=== PATIENT | male | born 1990 | race Two or more races ===

== ENCOUNTER 2024-06-03 15:01 | Inpatient (IN) | payer MEDICARE, MEDICAID ==
[~2024-06-03] VITALS: Ht 170.2 cm; Wt 65.0 kg
[~2024-06-03 15:01] MED LIST: HYDR-1421; NAPR-476
--- NOTE | 2024-06-03 15:18 | ED.PDOC ---
Altered Mental Status HPI Comments HPI: Poor Historian. 34-year-old male with a history of seizures on Keppra 4000 mg daily brought in by ambulance from home for seizure episode that was witnessed lasted approximately 15 minutes. Patient was laying flat when EMS arrived. They suspect that he aspirated. They repositioned him and he received a total of five Versed prior to arrival. Patient arrives here postictal. Seizure stopped after the Versed was given in route. Patient was slightly hypoxic in route on a non-rebreather but upon arrival on our monitor his pulse ox is 98%. Patient responds to painful stimuli and sternal rub. Also patient is on Xarelto for history of recent blood clot unknown where. Initial Vital Signs: Temp : BP: 100/65 HR:102 RR: 28 SpO2: 88% Past Medcial History: Past Surgical History: Past Surgical History: UNOBTAINABLE Social History: Denies smoking, ETOH, or drug use. Medications: KEPRA 4000MG, XARELTO Allergies: NKDA REVIEW OF SYSTEMS: Review of systems limited given the patient's altered level of consciousness however per EMS CONSTITUTIONAL: Denies acute: fever, diaphoresis, chills, generalized weakness. HEAD: Denies acute: headache, photophobia Eyes: Denies acute: Double vision, vision loss, eye pain, eye discharge. EARS: Denies acute: tinnitus, hearing loss, ear discharge, ear pain, THROAT: Denies acute: sore throat, swelling, difficulty swallowing , pain with swallowing, change in voice. NECK: Denies acute: neck pain, neck swelling, stiff neck. HEART: Denies acute : chest pain, palpitations, LUNGS: Denies acute: SOB, wheezing, cough, hemoptysis ABDOMEN: Denies acute: abdominal pain, Nausea, Vomiting, diarrhea, melena , hematemesis, hematochezia SKIN: Denies acute: rash, redness, lesions, itchiness. EXTREMITIES: Denies acute: calf pain, numbness, tingling, weakness, denies pain in extremity. Denies acute: Low back pain. Neuro: Denies acute: focal neurological deficit, motor or sensory focal neurological deficit, tremors, confusion, loss of bowel or bladder function, cauda equina like symptoms. : Denies acute: dysuria, hematuria, flank pain, increase in urinary frequency. PSYCH: Denies acute: hallucination, suicidal ideation, homicidal ideation. PHYSICAL EXAM: General: no acute distress, patient responds to painful stimuli by moving all his extremities. Head: normocephalic, atraumatic. Neck: supple, trachea is midline, no swelling. Throat: Patient has a gag reflex when I insert the tongue depressor. Eyes:, no erythema, no purulent discharge, no proptosis, no icterus. Heart: regular rate, regular rhythm, no significant murmur appreciated. Lungs: no apparent respiratory distress, No wheezing, no rhonchi, no crackles. No stridors Clear to auscultation bilaterally. Abdomen: non tender to palpation, non distended, soft, no guarding, no rebound, + bowel sounds. Neuro: Postictal, Versed was given recently Skin: no petechia, no purpura, no cyanosis, non-pale, not jaundice. Lower extremities: --no - Pitting edema no deformity, no focal swelling, no calf TTP. Face: no apparent facial droop. Pupils are reactive to light symmetrically bilaterally. Time Seen by MD: 15:03 Primary Care Provider: DENIES Allergies: Coded Allergies: NO KNOWN ALLERGIES (Unverified , 01/16/10) Home Meds Reported Medications Levetiracetam (Keppra) 500 Mg Tab, 2000 MG PO BID, MG 06/03/24 Rivaroxaban (XARELTO) 20 Mg Tab, 1 TAB PO DAILY, #30 TAB 11 Refills 06/03/24 Swozxtsimwc-Uiqcpmyidbvfi-Sdbm (Biktarvy 50-200-25 mg) 1 Tab Tab, 1 TAB PO DAILY, TAB 06/03/24 Naproxen (Naproxen Dr) 500 Mg Tab 01/16/10 Hydrocodone-Acetaminophen (Vicodin) 1 Tab Tab 01/16/10 Information Source: Emergency Med Personnel Past Medical History PAST MEDICAL HISTORY: Kidney Stones Surgical History: Denies all surgeries Family History Family History: Reviewed,noncontributory to illness, No family hx of DM Social History Smoker: Cigarettes Alcohol: Denies ETOH Use Drugs: Denies Drug Use Lives In: Home X-Ray, Labs, Meds, VS Vital Signs Date Time Temp Pulse Resp B/P (MAP) Pulse Ox O2 Delivery O2 Flow Rate FiO2 06/03/24 20:01 97 06/03/24 18:30 87 20 109/50 (69) 97 06/03/24 17:30 99 17 132/84 (100) 97 06/03/24 16:30 84 23 104/65 (78) 99 06/03/24 16:00 81 06/03/24 15:37 98.0 93 22 103/63 (76) 100 98.0 06/03/24 15:35 93 22 100 Non-Rebreather 10 N/A 06/03/24 15:30 99.0 102 26 100/65 (77) 88 Lab Test 06/03/24 19:51 06/03/24 17:51 06/03/24 16:45 06/03/24 15:15 Range/Units Troponin I High Sensitivity 10 10 6 </=54 ng/L Lactic Acid Level 0.9 3.0 *H 0.4-2.0 mmol/L Urine Color Light-yellow Yellow Urine Clarity Clear Clear Urine pH 6.5 5.0-9.0 Urine Specific [place] 1.017 1.001-1.035 Urine Protein Trace H Negative Urine Ketones 2+ H Negative Urine Blood Negative Negative /uL Urine Nitrite Negative Negative Urine Bilirubin Negative Negative Urine Urobilinogen Normal Negative mg/dL Urine Leukocyte Esterase Negative Negative /uL Urine RBC 4 0 - 3 /hpf Urine WBC <1 0 - 3 /hpf Urine Squamous Epithelial Cells Few <5 /hpf Urine Bacteria None seen None Seen /hpf Urine Hyaline Casts Few 0 - 2 /lpf Urine Mucus Few None Seen Urine Sperm Present None Seen /hpf Urine Glucose Normal Normal mg/dL Urine Opiates Screen Neg NEGATIVE Urine Fentanyl Screen Neg NEGATIVE Urine Barbiturates Screen Neg NEGATIVE Urine Phencyclidine Screen Neg NEGATIVE Urine Amphetamines Screen Pos NEGATIVE Urine Benzodiazepines Screen Pos NEGATIVE Urine Cocaine Screen Neg NEGATIVE Urine Cannabinoids Screen Pos NEGATIVE White Blood Count 7.9 4.4-10.8 10^3/uL Red Blood Count 5.18 4.5-5.90 10^6/uL Hemoglobin 15.1 13.5-17.5 g/dL Hematocrit 45.9 41.0-53.0 % Mean Corpuscular Volume 88.7 80.0-100.0 fL Mean Corpuscular Hemoglobin 29.1 28.0-32.0 pg Mean Corpuscular Hemoglobin Concent 32.9 32.0-36.0 g/dL Red Cell Distribution Width 17.7 H 11.8-14.3 % Platelet Count 198 140-450 10^3/uL Mean Platelet Volume 7.7 6.9-10.8 fL Neutrophils (%) (Auto) 85.4 H 37.0-80.0 % Lymphocytes (%) (Auto) 9.6 L 10.0-50.0 % Monocytes (%) (Auto) 4.4 0.0-12.0 % Eosinophils (%) (Auto) 0.3 0.0-7.0 % Basophils (%) (Auto) 0.3 0.0-2.0 % Neutrophils # (Auto) 6.7 1.6-8.6 10 ^3/uL Lymphocytes # (Auto) 0.8 0.4-5.4 10 ^3/uL Monocytes # (Auto) 0.3 0-1.3 10 ^3/uL Eosinophils # (Auto) 0 0-0.8 10 ^3/uL Basophils # (Auto) 0 0-0.2 10 ^3/uL Nucleated Red Blood Cells 0.1 % Sodium Level 138 136-145 mmol/L Potassium Level 4.2 3.5-5.1 mmol/L Chloride Level 104 98-107 mmol/L Carbon Dioxide Level 24 20-31 mmol/L Anion Gap 10 5-15 Blood Urea Nitrogen 13 9-23 mg/dL Creatinine 0.79 0.700-1.30 mg/dL Glomerular Filtration Rate Calc 120 >90 mL/min BUN/Creatinine Ratio 16.5 10.0-20.0 Serum Glucose 92 74-106 mg/dL Calcium Level 9.9 8.7-10.4 mg/dL Magnesium Level 2.2 1.6-2.6 mg/dL Total Bilirubin 0.8 0.2-1.0 mg/dL Aspartate Amino Transferase (AST) 28 13-40 U/L Alanine Aminotransferase (ALT) 17 7-40 U/L Alkaline Phosphatase 62 46-116 U/L Ammonia 32 11-32 umol/L Creatine Kinase 555 H 46-171 U/L Total Protein 7.0 5.7-8.2 g/dL Albumin 4.6 3.2-4.8 g/dL Salicylates Level < 3.0 -30 mg/dL Acetaminophen Level < 2.0 L 10.0-20.0 UG/ML Plasma/Serum Blood Alcohol 4.4 <10 mg/dL Current Medications Medications (Trade) Dose Ordered Sig/Og Route Start Time Stop Time Status Last Admin Sodium Chloride 1,000 ml @ 1,000 mls/hr Q1H ONCE IV 06/03/24 15:15 06/03/24 16:14 DC 06/03/24 15:22 Magnesium Sulfate/ Dextrose 100 ml @ 100 mls/hr ONCE ONCE IV 06/03/24 15:15 06/03/24 16:14 DC 06/03/24 15:22 Piperacillin Sod/ Tazobactam Sod 100 ml @ 100 mls/hr ONCE ONCE IV 06/03/24 15:15 06/03/24 16:14 DC 06/03/24 18:19 Naloxone HCl (Narcan) 4 mg ONCE ONCE IV 06/03/24 15:30 06/03/24 15:42 DC 06/03/24 15:59 Lorazepam (Ativan Inj) 1 mg ONCE ONCE IV 06/03/24 16:30 06/03/24 16:31 DC 06/03/24 16:20 Sodium Chloride 1,000 ml @ 1,000 mls/hr Q1H ONCE IV 06/03/24 16:30 06/03/24 17:29 DC 06/03/24 18:06 Levetiracetam 100 ml @ 400 mls/hr ONCE ONCE IV 06/03/24 16:30 06/03/24 16:44 DC 06/03/24 17:10 Ondansetron HCl (Zofran) 8 mg ONCE ONCE IV 06/03/24 17:30 06/03/24 17:31 DC 06/03/24 18:06 Sodium Chloride 1,000 ml @ 100 mls/hr Q10H IV 06/03/24 20:45 06/03/24 22:14 Time of 1ST Reevaluation: 16:49 (I was just updated that the patient family came and stated that the patient was initially diagnosed with bacterial meningitis 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 He completed the course of antibiotics. He was admitted last month. Patient has history of HIV and they state compliance with the medications however the family does not want to live with the patient. They stated that the patient's baseline is somewhat confused because of history of traumatic brain injury. Patient is now moving all four extremities answering questions when asked him what is his name. Patient is able to voice his concern and wants to be unrestrained. He is still altered and confused. No family members available at bedside at this t avis. He is in soft restraints to prevent harm to self. I am still waiting for CT scan of the brain. Patient is not holding still and keeps moving. We gave him 2 mg of Ativan. We were also told that the patient has problems with his short-term memory.) Reevaluation 1ST: Improved Patient Education/Counseling: Other Family Education/Counseling: Other Comments Patient presented with the above HPI.------ workup was initiated. patient was found with the above mentioned diagnosis. the following medications were ordered: the following tests were ordered: LABS, UA, CXR, EKG Patient ED course and VS have been stabilized. Patient has been reassessed in the ED and remained in a stable condition. Pertinent incidental findings were discussed with the patient and/or family. Patient/family voices understanding and is agreeable with plan. Patient has been observed in the ED adequate length of time to insure improvement/stability. Escalation of care considered: Consideration of escalation to observation or admission Patient was ADMITTED to the medicine team for further evaluation and treatment of their presentation. Patient was DISCHARGED home in a stable condition. All the reports of any imaging studies that were ordered by myself were reviewed by myself. Departure 1 Departure Time of Disposition: 16:18 Impression: Primary Impression: Altered level of consciousness Additional Impressions: Seizure Elevated CK Polysubstance abuse Disposition: ADMITTED INPATIENT Admit to: Tele Condition: Guarded Discharged With: Self I personally scribed for JAYDE PRITCHETT DO ([email or web address]) on 06/03/24 at 16:24. Electronically submitted by Kiley Mathew ([email or web address]). I personally scribed for JAYDE PRITCHETT DO ([email or web address]) on 06/03/24 at 22:38. Laura ctronically submitted by Kiley Mathew ([email or web address]). JAYDE PRITCHETT DO Jun 03, 2024 15:18
[2024-06-03] MEDS: MAGNESIUM SULFATE 1GM/100ML 100 ML IV ONE (15:22)
[2024-06-03] MEDS: SODIUM CHLORIDE 0.9% 1,000 ML IV ONE ×2 (15:22→18:06)
[2024-06-03 15:33] LABS: Basophils # (auto) 0 10 ^3/uL (0-0.2); Basophils % (auto) 0.3 % (0.0-2.0); Eosinophils # (auto) 0 10 ^3/uL (0-0.8); Eosinophils % (auto) 0.3 % (0.0-7.0); Hematocrit 45.9 % (41.0-53.0); Hemoglobin 15.1 g/dL (13.5-17.5); Lymphocytes # (auto) 0.8 10 ^3/uL (0.4-5.4); Lymphocytes % (auto) 9.6 % (10.0-50.0); Mean Corpuscular Hemoglobin 29.1 pg (28.0-32.0); Mean Corpuscular Hgb Conc. 32.9 g/dL (32.0-36.0); Mean Corpuscular Volume 88.7 fL (80.0-100.0); Monocytes # (auto) 0.3 10 ^3/uL (0-1.3); Monocytes % (auto) 4.4 % (0.0-12.0); Neutrophils # (auto) 6.7 10 ^3/uL (1.6-8.6); Neutrophils % (auto) 85.4 % (37.0-80.0); Nucleated Red Blood Cells % 0.1 %; Platelet Count (auto) 198 10^3/uL (140-450); Red Blood Cells 5.18 10^6/uL (4.5-5.90); Red Cell Distribution Width 17.7 % (11.8-14.3); White Blood Cell 7.9 10^3/uL (4.4-10.8)
[2024-06-03 15:35] VITALS: PULSE 93; RESP 22; O2SAT 100
[2024-06-03 15:46] LABS: Acetaminophen < 2.0 UG/ML (10.0-20.0); Alanine Aminotransferase 17 U/L (7-40); Albumin 4.6 g/dL (3.2-4.8); Alkaline Phosphatase 62 U/L (46-116); Anion Gap 10 (5-15); Aspartate Aminotransferase 28 U/L (13-40); BUN/Creatinine Ratio 16.5 (10.0-20.0); Blood Alcohol 4.4 mg/dL (<10); Blood Urea Nitrogen 13 mg/dL (9-23); Calcium 9.9 mg/dL (8.7-10.4); Carbon Dioxide 24 mmol/L (20-31); Chloride 104 mmol/L (98-107); Glucose 92 mg/dL (74-106); Magnesium 2.2 mg/dL (1.6-2.6); Potassium 4.2 mmol/L (3.5-5.1); Salicylate < 3.0 mg/dL (-30); Sodium 138 mmol/L (136-145)
[2024-06-03 15:47] LABS: Bilirubin, Total 0.8 mg/dL (0.2-1.0)
[2024-06-03 15:55] LABS: Creatine Kinase IFCC 555 U/L (46-171)
[2024-06-03] MEDS: NALOXONE HCL 1MG/ML 2ML SYRINGE IV ONE (15:59)
[2024-06-03] MEDS: LORazepam 2MG/ML-1ML VIAL IV ONE (16:20)
[2024-06-03] MEDS ORDERED: LORazepam 2MG/ML-1ML VIAL ONE (16:21)
[2024-06-03] MEDS: levETIRAcetam 1000 mg/100ml 100 ML IV ONE (17:10)
[2024-06-03 17:27] LABS: Urine Bacteria None Seen /hpf (None Seen)
--- NOTE | 2024-06-03 17:49 | DVH ---
CHEST RADIOGRAPH Indication: ALOC, SEIZURE Technique: Single frontal view of the chest was obtained Comparison: None FINDINGS: Lines and Tubes: None Lungs: No focal consolidation. Pleura: No effusion. No pneumothorax. Cardiomediastinal contours: Unremarkable Bones: No acute osseous abnormality. IMPRESSION: 1. No radiographic evidence of acute cardiopulmonary disease. HS:Y
[2024-06-03 17:59] LABS: Urine Blood Negative /uL (Negative); Urine Clarity Clear (Clear); Urine Color Light-Yellow (Yellow); Urine Hyaline Cast FEW /lpf (0 - 2); Urine Mucus FEW (None Seen); Urine Protein, UAD TRACE (Negative); Urine Specific Gravity 1.017 (1.001-1.035); Urine Sperm PRESENT /hpf (None Seen); Urine Squamous Epithelial Cell FEW /hpf (<5); Urine Urobilinogen Normal (Negative); Urine WBC <1 /hpf (0 - 3); Urine pH 6.5 (5.0-9.0)
[2024-06-03 18:00] LABS: Amphetamine Screen, Urine Pos (NEGATIVE); Barbiturate Scree,Urine Neg (NEGATIVE); Benzodiazephine Screen, Urine Pos (NEGATIVE); Cannabinoid Screen, Urine Pos (NEGATIVE); Cocaine Screen, Urine Neg (NEGATIVE); Opiate Scree,Urine Neg (NEGATIVE); Phencyclidine Screen, Urine Neg (NEGATIVE)
[2024-06-03] MEDS: ONDANSETRON HCL 4 MG/2 ML VIAL IV ONE (18:06)
[2024-06-03] MEDS: PIPERACILLIN-TAZOB 3.375GM 100 ML IV ONE (18:19)
[2024-06-03] MEDS ORDERED: RIVA20TA PO (19:04)
[2024-06-03] MEDS ORDERED: LEVE500T40 PO (19:04)
[2024-06-03] MEDS ORDERED: BICT1TAB PO (19:04)
[2024-06-03] MEDS ORDERED: ONDANSETRON HCL 4 MG/2 ML VIAL IV PRN (20:15)
[2024-06-03] MEDS ORDERED: DOCUSATE SOD 100 MG CAP PO PRN (20:15)
[2024-06-03] MEDS ORDERED: SODIUM CHLORIDE 0.9% 1,000 ML IV SCH (20:15)
[2024-06-03] MEDS ORDERED: HYDROcodone-ACET 5/325MG TAB PO PRN (20:15)
[2024-06-03] MEDS ORDERED: LORazepam 2MG/ML-1ML VIAL IV PRN (20:15)
--- NOTE | 2024-06-03 20:57 | DVHHP2 ---
History of Present Illness Reason for Visit: Seizure disorder History of Present Illness Patient is a 34-year-old male with past medical history of seizure and right hand DVT who presented to [facility] ED for evaluation of seizures activity. As reported by sister patient had witnessed seizure episode that lasted approximately 15 minutes. Seizure stopped after the Versed was given in route. Patient was slightly hypoxic in route on a non-rebreather but upon arrival on our monitor his pulse ox is 98%. The patient was seen and evaluated in the ED, laboratory data shows WBC 7.9, platelets 198, sodium 138, potassium 4.2, BUN 19, creatinine 0.79, GFR 120, glucose 92, CK 555, lactic acid 3.0 trending down to 0.9, ammonia 32, troponin 10, alcohol 4.4, blood pressure 109/50, heart rate 84, temperature 98.0 F, O2 saturation 97% room air. Head CT showed no acute intracranial abnormality. Please see medication orders section in the computer. On my assessment, patient's sister at bedside, denied chest pain, no headache, no dizziness, no diaphoresis, no shortness of breath, no naus ea, no vomiting, no fever, no chills. Patient was admitted further evaluation and medical management. Past Medical History Seizure, Right hand DVT, TBI Past Surgical History Multiple left-sided fractures surgery Family History Reviewed, noncontributory to the management of this case. Past Social History The patient lives at home, denies smoking, alcohol or illicit drugs abuse. Review of Systems Constitutional: Yes: Weakness; No: Fever, Chills, Sweats, Malaise, Other Eyes: No: Pain, Vision change, Conjunctivae inflammation, Eyelid inflammation, Other, Redness ENT: No: Ear pain, Ear discharge, Nose pain, Nose discharge, Nose congestion, Mouth pain, Mouth swelling, Throat pain, Throat swelling, Other Respiratory: No: Cough, Dry, Shortness of breath, SOB with excertion, Wheezing, Hemoptysis, Pleuritic Pain, Sputum, Wheezing, Other Cardiovascular: No: Chest Pain, Palpitations, Orthopnea, Paroxysmal Noc. Dyspnea, Edema, Lt Headedness, Other Gastrointestinal: No: Nausea, Vomiting, Abdominal Pain, Diarrhea, Constipation, Melena, Hematochezia, Other Genitourinary: No Dysuria, No Frequency, No Incontinence, No Hematuria, No Retention, No Other Musculoskeletal: No: other, neck pain, shoulder pain, arm pain, back pain, hand pain, leg pain, foot pain Skin: No: Rash, Lesions, Jaundice, Bruising, Other Neurological: Seizures; No: Weakness, Numbness, Incoordination, Change in speech, Confusion, Other Allergies: Coded Allergies: NO KNOWN ALLERGIES (Unverified , 01/16/10) Medications Current Medications Medications Dose Ordered Sig/Og Route Start Time Stop Time Status Last Admin Dose Admin Levetiracetam 100 ml @ 400 mls/hr BID IV 06/03/24 22:00 Lorazepam 1 mg Q2HP PRN IV 06/03/24 20:15 Acetaminophen/ Hydrocodone Bitart 1 tab Q4HP PRN PO 06/03/24 20:15 Ondansetron HCl 4 mg Q4HP PRN IV 06/03/24 20:15 Docusate Sodium 100 mg BIDPRN PRN PO 06/03/24 20:15 Acetaminophen 650 mg Q6HP PRN PO 06/03/24 20:15 Rivaroxaban 20 mg DAILY PO 06/04/24 10:00 Sodium Chloride 1,000 ml @ 100 mls/hr Q10H IV 06/03/24 20:45 UNV Lactulose 30 ml BID PO 06/03/24 22:00 UNV Ceftriaxone Sodium 50 ml @ 100 mls/hr DAILY@09 IV 06/04/24 09:00 UNV Exam Vital Signs Vital Signs Date Time Temp Pulse Resp B/P (MAP) Pulse Ox O2 Delivery O2 Flow Rate FiO2 06/03/24 20:01 97 06/03/24 18:30 20 109/50 (69) 97 06/03/24 15:37 98.0 98.0 06/03/24 15:35 Non-Rebreather 10 N/A General Appearance: Alert, Oriented X3, Cooperative, No acute distress HEENT: Atraumatic, PERRLA, EOMI, Mucous membr. moist/pink Respiratory: Clear to auscultation, Normal air movement Cardiovascular: Regular rate, Normal S1, Normal S2, No murmurs Abdominal: Normal bowel sounds, Soft, No tenderness, No hepatospenomegaly, No masses Extremities: No clubbing, No cyanosis, No edema, Normal pulses, No tenderness/swelling Skin: No rashes, No breakdown, No significant lesion Neuro: Normal speech, Normal tone, Sensation intact, Cranial nerves 3-12 NL, Reflexes 2+, Other (Generalized weakness) Psych/Mental Status: Mental status NL, Mood NL Labs/Xrays Labs Test 06/03/24 19:51 06/03/24 17:51 06/03/24 16:45 06/03/24 15:15 Range/Units Lactic Acid Level 0.9 0.4-2.0 mmol/L Urine Color Light-yellow Yellow Urine Clarity Clear Clear Urine pH 6.5 5.0-9.0 Urine Specific [place] 1.017 1.001-1.035 Urine Protein Trace H Negative Urine Ketones 2+ H Negative Urine Blood Negative Negative /uL Urine Nitrite Negative Negative Urine Bilirubin Negative Negative Urine Urobilinogen Normal Negative mg/dL Urine Leukocyte Esterase Negative Negative /uL Urine RBC 4 0 - 3 /hpf Urine WBC <1 0 - 3 /hpf Urine Squamous Epithelial Cells Few <5 /hpf Urine Bacteria None seen None Seen /hpf Urine Hyaline Casts Few 0 - 2 /lpf Urine Mucus Few None Seen Urine Sperm Present None Seen /hpf Urine Glucose Normal Normal mg/dL Urine Opiates Screen Neg NEGATIVE Urine Fentanyl Screen Neg NEGATIVE Urine Barbiturates Screen Neg NEGATIVE Urine Phencyclidine Screen Neg NEGATIVE Urine Amphetamines Screen Pos NEGATIVE Urine Benzodiazepines Screen Pos NEGATIVE Urine Cocaine Screen Neg NEGATIVE Urine Cannabinoids Screen Pos NEGATIVE White Blood Count 7.9 4.4-10.8 10^3/uL Red Blood Count 5.18 4.5-5.90 10^6/uL Hemoglobin 15.1 13.5-17.5 g/dL Hematocrit 45.9 41.0-53.0 % Mean Corpuscular Volume 88.7 80.0-100.0 fL Mean Corpuscular Hemoglobin 29.1 28.0-32.0 pg Mean Corpuscular Hemoglobin Concent 32.9 32.0-36.0 g/dL Red Cell Distribution Width 17.7 H 11.8-14.3 % Platelet Count 198 140-450 10^3/uL Mean Platelet Volume 7.7 6.9-10.8 fL Neutrophils (%) (Auto) 85.4 H 37.0-80.0 % Lymphocytes (%) (Auto) 9.6 L 10.0-50.0 % Monocytes (%) (Auto) 4.4 0.0-12.0 % Eosinophils (%) (Auto) 0.3 0.0-7.0 % Basophils (%) (Auto) 0.3 0.0-2.0 % Neutrophils # (Auto) 6.7 1.6-8.6 10 ^3/uL Lymphocytes # (Auto) 0.8 0.4-5.4 10 ^3/uL Monocytes # (Auto) 0.3 0-1.3 10 ^3/uL Eosinophils # (Auto) 0 0-0.8 10 ^3/uL Basophils # (Auto) 0 0-0.2 10 ^3/uL Nucleated Red Blood Cells 0.1 % Sodium Level 138 136-145 mmol/L Potassium Level 4.2 3.5-5.1 mmol/L Chloride Level 104 98-107 mmol/L Carbon Dioxide Level 24 20-31 mmol/L Anion Gap 10 5-15 Blood Urea Nitrogen 13 9-23 mg/dL Creatinine 0.79 0.700-1.30 mg/dL Glomerular Filtration Rate Calc 120 >90 mL/min BUN/Creatinine Ratio 16.5 10.0-20.0 Serum Glucose 92 74-106 mg/dL Calcium Level 9.9 8.7-10.4 mg/dL Magnesium Level 2.2 1.6-2.6 mg/dL Total Bilirubin 0.8 0.2-1.0 mg/dL Aspartate Amino Transferase (AST) 28 13-40 U/L Alanine Aminotransferase (ALT) 17 7-40 U/L Alkaline Phosphatase 62 46-116 U/L Ammonia 32 11-32 umol/L Creatine Kinase 555 H 46-171 U/L Total Protein 7.0 5.7-8.2 g/dL Albumin 4.6 3.2-4.8 g/dL Salicylates Level < 3.0 -30 mg/dL Acetaminophen Level < 2.0 L 10.0-20.0 UG/ML Plasma/Serum Blood Alcohol 4.4 <10 mg/dL PATIENT: MATTI BAY JR ACCT: [id number] UNIT: [id number] : 1990 LOC: ER ROOM / BED: / AGE / SEX: 34 / M ADM STATUS: REG ER SERVICE 1503 ORDERING PHYSICIAN: JYADE PRITCHETT DO PROCEDURE(s): CXRP - CHEST PORTABLE REASON: ALOC, SEIZURE ORDER NUMBER(s): [id number], ACCESSION NUMBER(s): [id number] CHEST RADIOGRAPH Indication: ALOC, SEIZURE Technique: Single frontal view of the chest was obtained Comparison: None FINDINGS: Lines and Tubes: None Lungs: No focal consolidation. Pleura: No effusion. No pneumothorax. Cardiomediastinal contours: Unremarkable Bones: No acute osseous abnormality. IMPRESSION: 1. No radiographic evidence of acute cardiopulmonary disease. Assessment/Plan Assessment/Plan Seizure disorder Altered level of consciousness Elevated CK Lactic acidosis Polysubstance abuse Plan 1. Admit to telemetry unit 2. Breathing treatment 3. Pain control management 4. IV antibiotic management 5. Management of fluids and electrolytes 6. Consultation for neurology 7. Diagnostic test chest x-ray 8. DVT prophylaxis-on Xarelto 9. Repeat labs CBC, CMP in a.m. 10. Home medication reviewed and reconciled 11. Continue with current medical management 12. Treatment plan discussed with patient and RN. Patient verbalized understa nding. Plan discussed with: Patient (/sister), Other (RN) My Orders Orders - MIGUEL BOSCH DNP Procedure Category Date Status Time Levetiracetam 500 PHA 06/03/24 In Process Mg/100ml (Levetiraceta 22:00 Lorazepam 2mg/Ml Inj PHA 06/03/24 In Process (Ativan Inj) 20:15 Allergies VIPUL 06/03/24 In Process 20:04 Code Status CODE 06/03/24 Transmitted 20:04 2 Gm Sodium Diet DIET 06/04/24 Transmitted Breakfast Oxygen Per Hour RT 06/03/24 Transmitted 20:04 Hydrocodone-Acet PHA 06/03/24 In Process 5/325mg Tab (Whiteface 20:15 Ondansetron Hcl PHA 06/03/24 In Process (Zofran) 20:15 Docusate Sodium PHA 06/03/24 In Process Capsule (Colace 20:15 Fall Risk Precautions VIPUL 06/03/[address] 20:04 Complete Blood Count LAB 06/04/24 Verified 04:00 Comprehensive LAB 06/04/24 Verified Metabolic Panel 04:00 Condition: Serious VIPUL 06/03/24 In Process 20:04 Acetaminophen Tablet PHA 06/03/24 In Process (Tylenol Tablet) 20:15 Sequential VIPUL 06/03/24 In Process Compression Device Rivaroxaban Tablet PHA 06/04/24 In Process (Xarelto Tablet) 10:00 * Neurology Consult CONS 06/03/24 Transmitted 20:10 Sodium Chloride 0.9% PHA 06/03/24 Logged 20:45 Lactulose Oral PHA 06/03/24 Logged 22:00 Ceftriaxone 1gm/50ml PHA 06/04/24 Logged D5w (Rocephin) 09:00 Sitter At Bedside ORDERS 06/03/24 Transmitted 20:43 Problem List: (1) Seizure disorder (2) Altered level of consciousness (3) Elevated CK (4) Lactic acidosis (5) Polysubstance abuse Date of Service: Jun 03, 2024 Billing Provider: MIGUEL BOSCH DNP Common Visit Codes: [id number] INP/OBS CARE (HIGH) MIGUEL BOSCH DNP Jun 03, 2024 20:57
[2024-06-03 21:00] VITALS: PULSE 93; RESP 22; O2SAT 100
[2024-06-03] MEDS ORDERED: MORPHINE SULFATE INJ 2 MG/ml SYRG IV PRN (21:00)
[2024-06-03] MEDS ORDERED: NITROGLYCERIN 0.4 MG SL TAB SL PRN (21:00)
--- NOTE | 2024-06-03 21:40 | DVH ---
EXAM: CT HEAD WITHOUT CONTRAST INDICATION: ALOC, SEIZURE TECHNIQUE: CT of the head without intravenous contrast. Radiation Dose : 1. Head: CT Dose: CTDI volume is 59 mGy. Dose-length product is 1155 mGy*cm The dose indicators for CT are the volume Computed Tomography (CT) Dose Index (CTDIvol) and the Dose Length Product (DLP), and are measured in units of mGy and mGy-cm, respectively. These indicators are not patient dose, but values generated from the CT scanner acquisition factors. The report includes radiation exposure data for exposures received during this examination. COMPARISON: None FINDINGS: There is no evidence of acute intracranial hemorrhage, extra-axial collection, mass effect, midline s hift, herniation or hydrocephalus. The ventricles, sulci and cisterns are age appropriate. The knutson-white differentiation is intact. Patchy periventricular and subcortical white matter hypoattenuation is nonspecific but may be related to small vessel ischemic disease. The visualized paranasal sinuses and mastoid air cells are clear. The surrounding soft tissues and osseous structures are unremarkable. IMPRESSION: No acute intracranial abnormality. Encephalomalacia/gliosis involving the bifrontal lobes, left side greater than right likely from prior injury or infarct.
[2024-06-03] MEDS: LACTULOSE 20Gm/30ML SOLN PO SCH (22:00)
[2024-06-03] MEDS: levETIRAcetam 500 mg/100ml 100 ML IV SCH (22:14)
[2024-06-03] MEDS: SODIUM CHLORIDE 0.9% 1,000 ML IV SCH (22:14)
[2024-06-03] MEDS: ACETAMINOPHEN 325 MG TAB PO PRN (23:09)
[2024-06-04 05:48] LABS: Basophils # (auto) 0 10 ^3/uL (0-0.2); Basophils % (auto) 0.5 % (0.0-2.0); Eosinophils # (auto) 0.1 10 ^3/uL (0-0.8); Eosinophils % (auto) 0.8 % (0.0-7.0); Hematocrit 40.1 % (41.0-53.0); Hemoglobin 13.5 g/dL (13.5-17.5); Lymphocytes # (auto) 1.7 10 ^3/uL (0.4-5.4); Lymphocytes % (auto) 16.9 % (10.0-50.0); Mean Corpuscular Hgb Conc. 33.8 g/dL (32.0-36.0); Mean Corpuscular Volume 88.9 fL (80.0-100.0); Monocytes # (auto) 0.9 10 ^3/uL (0-1.3); Monocytes % (auto) 8.4 % (0.0-12.0); Neutrophils # (auto) 7.6 10 ^3/uL (1.6-8.6); Neutrophils % (auto) 73.4 % (37.0-80.0); Nucleated Red Blood Cells % 0.1 %; Platelet Count (auto) 181 10^3/uL (140-450); Red Blood Cells 4.51 10^6/uL (4.5-5.90); Red Cell Distribution Width 17.9 % (11.8-14.3); White Blood Cell 10.3 10^3/uL (4.4-10.8)
[2024-06-04 06:14] LABS: Alanine Aminotransferase 13 U/L (7-40); Albumin 3.8 g/dL (3.2-4.8); Alkaline Phosphatase 50 U/L (46-116); Anion Gap 9 (5-15); Aspartate Aminotransferase 23 U/L (13-40); BUN/Creatinine Ratio 11.9 (10.0-20.0); Calcium 9.1 mg/dL (8.7-10.4); Carbon Dioxide 22 mmol/L (20-31); Glucose 85 mg/dL (74-106); Sodium 138 mmol/L (136-145)
[2024-06-04 06:15] LABS: Blood Urea Nitrogen 8 mg/dL (9-23); Chloride 107 mmol/L (98-107); Potassium 3.5 mmol/L (3.5-5.1); Total Protein 6.1 g/dL (5.7-8.2)
[2024-06-04 08:00] VITALS: PULSE 86; RESP 17; TEMP 99; O2SAT 96
--- NOTE | 2024-06-04 12:10 | DVHPN2 ---
Subjective Feels better Reviewed: Care Plan, H&P, Labs, Medications, Previous Orders, Radiology Changes from previous H/P or p: No Changes Objective Vitals Vital Signs Date Time Temp Pulse Resp B/P (MAP) Pulse Ox O2 Delivery O2 Flow Rate FiO2 06/04/24 06:30 81 19 97/54 (68) 96 06/03/24 21:00 Non-Rebreather 10 N/A 06/03/24 15:37 98.0 98.0 Intake/Output Intake and Output 06/04/24 07:00 Intake Total 1650 ml Balance 1650 ml Intake IV Total 1650 ml General Appearance: Alert, Oriented X3, Cooperative HEENT: PERRLA Lungs: Clear to auscultation Cardiovascular: Regular rate Abdomen: Normal bowel sounds, Soft, No tenderness Extremities: No edema Neuro: Other (Seems symmetric) Medications Current Medications Medications Dose Ordered Sig/Og Route Start Time Stop Time Status Last Admin Dose Admin Levetiracetam 100 ml @ 400 mls/hr BID IV 06/03/24 22:00 06/03/24 22:14 400 MLS/HR Lorazepam 1 mg Q2HP PRN IV 06/03/24 20:15 Acetaminophen/ Hydrocodone Bitart 1 tab Q4HP PRN PO 06/03/24 20:15 Ondansetron HCl 4 mg Q4HP PRN IV 06/03/24 20:15 Docusate Sodium 100 mg BIDPRN PRN PO 06/03/24 20:15 Acetaminophen 650 mg Q6HP PRN PO 06/03/24 20:15 06/03/24 23:09 650 MG Rivaroxaban 20 mg DAILY PO 06/04/24 10:00 Sodium Chloride 1,000 ml @ 100 mls/hr Q10H IV 06/03/24 20:45 06/03/24 22:14 100 MLS/HR Lactulose 30 ml BID PO 06/03/24 22:00 Ceftriaxone Sodium 50 ml @ 100 mls/hr DAILY@09 IV 06/04/24 09:00 Nitroglycerin 0.4 mg Q5MINP PRN SL 06/03/24 21:00 Morphine Sulfate 2 mg Q30M PRN IV 06/03/24 21:00 Laboratory Results Laboratory Tests 06/04/24 05:10 Chemistry Test 06/03/24 15:15 06/04/24 05:10 Albumin 4.6 g/dL (3.2-4.8) 3.8 g/dL (3.2-4.8) Calcium Level 9.9 mg/dL (8.7-10.4) 9.1 mg/dL (8.7-10.4) Magnesium Level 2.2 mg/dL (1.6-2.6) Total Protein 7.0 g/dL (5.7-8.2) 6.1 g/dL (5.7-8.2) LFT Test 06/03/24 15:15 06/04/24 05:10 Alanine Aminotransferase (ALT) 17 U/L (7-40) 13 U/L (7-40) Alkaline Phosphatase 62 U/L (46-116) 50 U/L (46-116) Aspartate Amino Transferase (AST) 28 U/L (13-40) 23 U/L (13-40) Total Bilirubin 0.8 mg/dL (0.2-1.0) 1.0 mg/dL (0.2-1.0) Urinalysis Test 06/03/24 16:45 Urine Color Light-yellow (Yellow) Urine Clarity Clear (Clear) Urine pH 6.5 (5.0-9.0) Urine Specific [place] 1.017 (1.001-1.035) Urine Protein Trace (Negative) H Urine Ketones 2+ (Negative) H Urine Blood Negative /uL (Negative) Urine Nitrite Negative (Negative) Urine Bilirubin Negative (Negative) Urine Urobilinogen Normal mg/dL (Negative) Urine Leukocyte Esterase Negative /uL (Negative) Urine RBC 4 /hpf (0 - 3) Urine WBC <1 /hpf (0 - 3) Urine Squamous Epithelial Cells Few /hpf (<5) Urine Bacteria None seen /hpf (None Seen) Urine Hyaline Casts Few /lpf (0 - 2) Urine Mucus Few (None Seen) Urine Sperm Present /hpf (None Seen) Urine Glucose Normal mg/dL (Normal) Assessment/Plan Assessment/Plan Seizures/history of same History of traumatic brain injury History of DVT right upper extremity in April 2024 Positive for amphetamine/patient denies use since April. Made Patient aware that it can cause seizures Positive for cannabinoid Plan discussed with: Patient, Other (Nursing) My Orders Orders - YOLIE YOUNGER MD Procedure Category Date Status Time Creatine Kinase LAB 06/04/24 Verified 12:07 Creatine Kinase LAB 06/05/24 Verified 00:07 Creatine Kinase LAB 06/05/24 Verified 12:07 Date of Service: Jun 04, 2024 Billing Provider: YOLIE YOUNGER MD Common Visit Codes: [id number] INP/OBS CARE(HIGH) YOLIE YOUNGER MD Jun 04, 2024 12:10
[2024-06-04] MEDS: RIVAROXABAN 20 MG TAB PO SCH (12:22)
[2024-06-04] MEDS: cefTRIAXone 1GM/50ML D5W 50 ML IV SCH (12:22)
[2024-06-04 20:00] VITALS: PULSE 88; RESP 16; O2SAT 97
[2024-06-05 04:00] VITALS: BP 124/66; PULSE 54; RESP 15; O2SAT 95
--- NOTE | 2024-06-05 08:23 | DVHDS2 ---
Discharge Summary Date of Admission Jun 03, 2024 at 20:55 Date of Discharge: Jun 05, 2024 Admitting Diagnosis Seizures Labs/Diagnostic Data: Laboratory Results Test 06/05/24 00:27 06/04/24 05:10 06/03/24 19:51 06/03/24 17:51 Creatine Kinase 200 U/L (46-171) White Blood Count 10.3 10^3/uL (4.4-10.8) Red Blood Count 4.51 10^6/uL (4.5-5.90) Hemoglobin 13.5 g/dL (13.5-17.5) Hematocrit 40.1 % (41.0-53.0) Mean Corpuscular Volume 88.9 fL (80.0-100.0) Mean Corpuscular Hemoglobin 30.0 pg (28.0-32.0) Mean Corpuscular Hemoglobin Concent 33.8 g/dL (32.0-36.0) Red Cell Distribution Width 17.9 % (11.8-14.3) Platelet Count 181 10^3/uL (140-450) Mean Platelet Volume 7.7 fL (6.9-10.8) Neutrophils (%) (Auto) 73.4 % (37.0-80.0) Lymphocytes (%) (Auto) 16.9 % (10.0-50.0) Monocytes (%) (Auto) 8.4 % (0.0-12.0) Eosinophils (%) (Auto) 0.8 % (0.0-7.0) Basophils (%) (Auto) 0.5 % (0.0-2.0) Neutrophils # (Auto) 7.6 10 ^3/uL (1.6-8.6) Lymphocytes # (Auto) 1.7 10 ^3/uL (0.4-5.4) Monocytes # (Auto) 0.9 10 ^3/uL (0-1.3) Eosinophils # (Auto) 0.1 10 ^3/uL (0-0.8) Basophils # (Auto) 0 10 ^3/uL (0-0.2) Nucleated Red Blood Cells 0.1 % Sodium Level 138 mmol/L (136-145) Potassium Level 3.5 mmol/L (3.5-5.1) Chloride Level 107 mmol/L (98-107) Carbon Dioxide Level 22 mmol/L (20-31) Anion Gap 9 (5-15) Blood Urea Nitrogen 8 mg/dL (9-23) Creatinine 0.67 mg/dL (0.700-1.30) Glomerular Filtration Rate Calc 126 mL/min (>90) BUN/Creatinine Ratio 11.9 (10.0-20.0) Serum Glucose 85 mg/dL (74-106) Calcium Level 9.1 mg/dL (8.7-10.4) Total Bilirubin 1.0 mg/dL (0.2-1.0) Aspartate Amino Transferase (AST) 23 U/L (13-40) Alanine Aminotransferase (ALT) 13 U/L (7-40) Alkaline Phosphatase 50 U/L (46-116) Total Protein 6.1 g/dL (5.7-8.2) Albumin 3.8 g/dL (3.2-4.8) Troponin I High Sensitivity 10 ng/L (</=54) Lactic Acid Level 0.9 mmol/L (0.4-2.0) Test 06/03/24 16:45 06/03/24 15:15 Urine Color Light-yellow (Yellow) Urine Clarity Clear (Clear) Urine pH 6.5 (5.0-9.0) Urine Specific [place] 1.017 (1.001-1.035) Urine Protein Trace (Negative) Urine Ketones 2+ (Negative) Urine Blood Negative /uL (Negative) Urine Nitrite Negative (Negative) Urine Bilirubin Negative (Negative) Urine Urobilinogen Normal mg/dL (Negative) Urine Leukocyte Esterase Negative /uL (Negative) Urine RBC 4 /hpf (0 - 3) Urine WBC <1 /hpf (0 - 3) Urine Squamous Epithelial Cells Few /hpf (<5) Urine Bacteria None seen /hpf (None Seen) Urine Hyaline Casts Few /lpf (0 - 2) Urine Mucus Few (None Seen) Urine Sperm Present /hpf (None Seen) Urine Glucose Normal mg/dL (Normal) Urine Opiates Screen Neg (NEGATIVE) Urine Fentanyl Screen Neg (NEGATIVE) Urine Barbiturates Screen Neg (NEGATIVE) Urine Phencyclidine Screen Neg (NEGATIVE) Urine Amphetamines Screen Pos (NEGATIVE) Urine Benzodiazepines Screen Pos (NEGATIVE) Urine Cocaine Screen Neg (NEGATIVE) Urine Cannabinoids Screen Pos (NEGATIVE) Magnesium Level 2.2 mg/dL (1.6-2.6) Ammonia 32 umol/L (11-32) Salicylates Level < 3.0 mg/dL (-30) Acetaminophen Level < 2.0 UG/ML (10.0-20.0) Plasma/Serum Blood Alcohol 4.4 mg/dL (<10) Other Laboratory Tests 06/04/24 05:10 Brief Hx & Hospital Course: 34-year-old gentleman admitted to the hospital from the emergency room because of seizure activities. Patient has history of seizures for which she takes medications. Patient tested positive for amphetamine and cannabinoid. Patient was advised to stop using amphetamine as it can increase seizure activities. Patient understood. Patient will be discharged home. He will resume taking his previous home medications and follow with neurologist and PCP end-stage away from amphetamine and other stimulants Condition at Discharge: Good Final Diagnosis/Problems List Breakthrough seizures Secondary Diagnosis: Seizures Traumatic brain injury Right upper extremity DVT Discharge Disposition: Home Discharge Instruct/Medications Diet: Regular Activity: No Restrictions, As Tolerated Follow Up/Referral: PCP within one week Neurology within one week Medications: Resume previous home medications. Stay away from amphetamine and other stimulants like coffee, tea, other drinks that have caffeine or other stimulants Discharge Statement: "Patient was advised to return to the ER or call 911 if any headaches, dizziness, shortness of breath, chest pain, abdominal pain, bleeding, fevers, or worsening of medical condition. Patient was counseled about treatment plan, medications, possible side effects, patientverbalized understanding. All questions were answered to the best of my ability. This discharge took greater then 30 minutes in planning, reviewing documentation, counseling the patient, and discussing with other team members." ASSESSMENT ASSESSMENT Assessment Date of Service: Jun 05, 2024 Billing Provider: YOLIE YOUNGER MD Common Visit Codes: [id number] DISCH DAY <30MIN YOLIE YOUNGER MD Jun 05, 2024 08:23
== END 2024-06-05 09:52 | disposition home or self-care (01) | DRG 101 ==
LOC: EDBD 15:01 → ER 15:05 → TELE 20:55
PROVIDERS: ADMIT Nurse Practitioner Family; ATTEND Nurse Practitioner Family
DX: G40.909 Epilepsy, unspecified, not intractable, without status epilepticus (principal); E87.20 Acidosis, unspecified; I82.621 Acute embolism and thrombosis of deep veins of right upper extremity; F19.10 Other psychoactive substance abuse, uncomplicated; F15.90 Other stimulant use, unspecified, uncomplicated; F17.210 Nicotine dependence, cigarettes, uncomplicated; Z79.899 Other long term (current) drug therapy; Z86.718 Personal history of other venous thrombosis and embolism; Z87.820 Personal history of traumatic brain injury; Z87.442 Personal history of urinary calculi
CPT/HCPCS: 36415; 70450; 71045; 80053; 80307; 80320; 80329; 81001; 82140; 82550; 83605; 83735; 84484; 85025; 96365; 96375; G0378; J2405; J2543

== ENCOUNTER 2024-08-03 17:22 | Emergency (ER) | payer MEDICARE, MEDICAID ==
[~2024-08-03] VITALS: Ht 167.6 cm; Wt 63.2 kg
[~2024-08-03 17:22] MED LIST changes: +BICT1TAB PO; +LEVE500T40 PO; +RIVA20TA PO
[2024-08-03 18:27] VITALS: TEMP 98
--- NOTE | 2024-08-03 18:56 | DVH ---
XY CHEST TWO VIEWS ROUTINE CLINICAL HISTORY: left rib pain COMPARISON: None TECHNIQUE: Frontal and lateral view of the chest was obtained FINDINGS: Lungs are well expanded without infiltrates or effusions. Trachea is midline. Veronika is short mainst em bronchi are well aerated right pulmonary artery left pulmonary artery normal. The aorta is unremar kable. Heart size is normal there are no infiltrates or effusions retrocardiac spaces normal. Verteb ral bodies are unremarkable. Pulmonary arteries are normal sagittal imaging. IMPRESSION: 1. Normal study
[2024-08-03 19:09] LABS: Basophils # (auto) 0 10 ^3/uL (0-0.2); Basophils % (auto) 0.5 % (0.0-2.0); Eosinophils # (auto) 0.1 10 ^3/uL (0-0.8); Eosinophils % (auto) 1.4 % (0.0-7.0); Hematocrit 44.3 % (41.0-53.0); Hemoglobin 14.7 g/dL (13.5-17.5); Lymphocytes # (auto) 2.4 10 ^3/uL (0.4-5.4); Lymphocytes % (auto) 40.4 % (10.0-50.0); Mean Corpuscular Hemoglobin 31.3 pg (28.0-32.0); Mean Corpuscular Hgb Conc. 33.3 g/dL (32.0-36.0); Mean Corpuscular Volume 94.2 fL (80.0-100.0); Monocytes # (auto) 0.5 10 ^3/uL (0-1.3); Neutrophils % (auto) 49.7 % (37.0-80.0); Nucleated Red Blood Cells % 0.3 %; Platelet Count (auto) 250 10^3/uL (140-450); White Blood Cell 5.9 10^3/uL (4.4-10.8)
[2024-08-03 19:16] VITALS: BP 96/57; PULSE 72; RESP 16; O2SAT 99
--- NOTE | 2024-08-03 19:18 | ED.PDOC ---
SOB-HPI HPI Comments 34-YEAR-OLD MALE PRESENTS TO ER WITH COMPLAINTS OF RIB PAIN X2 DAYS. PATIENT REPORTS THAT HE WOKE UP WITH LEFT POSTERIOR RIBCAGE PAIN TWO DAYS AGO. DENIES ANY TRAUMA/FALLS. HE RATES HIS CURRENT PAIN A 7/10 TO LEFT POSTERIOR RIBCAGE WITH RADIATION TOWARDS THE LEFT LOWER RIBCAGE. DENIES USE OF MEDICATIONS FOR CURRENT SYMPTOMS. PATIENT PRESENTS TO ER AMBULATORY ON ARRIVAL, WITH STEADY GAIT, IN NO DISTRESS AND STATES HE DOES HAVE HISTORY OF A RIGHT ARM DVT IN APRIL 2024, IS CURRENTLY ON ELIQUIS BUT IS CONCERNED THAT HE DEVELOPED A BLOOD CLOT IN HIS LUNGS. DENIES SHORTNESS OF BREATH, CHEST PAIN, PALPITATIONS, FEVER, BODY ACHES, CHILLS, RECENT ILLNESS OR ANY FURTHER SYMPTOMS/COMPLAINTS Chief Complaint: Back Pain Time Seen by MD: 18:09 Primary Care Provider: JEREMIAH Reviewed notes: Nurses Notes, Medications, Allergies Information Source: Patient Mode of Arrival: Ambulatory Past Medical History PAST MEDICAL HISTORY: Kidney Stones, Seizures Past Medical History (Other): HIV RIGHT ARM DVT- APRIL 2024 MENINGITIS Surgical History (Other): LEFT HIP SURGERY Family History Family History: No family hx of DM Social History Smoker: Cigarettes, Less Than 1 Pack/Day Alcohol: Denies ETOH Use Drugs: Denies Drug Use Lives In: Home Constitutional: denies: chills, diaphoresis, fatigue, fever, malaise, sweats, weakness, others EENTM: denies: blurred vision, double vision, ear bleeding, ear discharge, ear drainage, ear pain, ear ringing, eye pain, eye redness, hearing loss, mouth pain, mouth swelling, nasal discharge, nose bleeding, nose congestion, nose pain, photophobia, tearing, throat pain, throat swelling, voice changes, others Respiratory: denies: cough, hemoptysis, orthopnea, SOB at rest, shortness of breath, SOB with excertion, stridor, wheezing, others Cardiovascular: denies: chest pain, dizzy spells, diaphoresis, Dyspnea on exertion, edema, irregular heart beat, left arm pain, lightheadedness, palpitations, PND, syncope, others Gastrointestinal: denies: abdomen distended, abdominal pain, blood streaked bowels, constipated, diarrhea, dysphagia, difficulty swallowing, hematemesis, melena, nausea, poor appetite, poor fluid intake, rectal bleeding, rectal pain, vomiting, others Genitourinary: denies: burning, dysuria, flank pain, frequency, hematuria, incontinence, penile discharge, penile sore, pain, testicle pain, testicle swelling, urgency, others Neurological: denies: dizziness, fainting, headache, left sided numbness, left sided weakness, numbness, paresthesia, pre-existing deficit, right sided numbness, right sided weakness, seizure, speech problems, tingling, tremors, weakness, others Musculoskeletal: reports: others ( STATED IN HPI) Integumetry: denies: bruises, change in color, change in hair/nails, dryness, laceration, lesions, lumps, rash, wounds, others Allergic/Immunocompromised: denies: Difficulty Healing, Frequent Infections, Hives, Itching, others Hematologic/Lymphatic: denies: anemia, blood clots, easy bleeding, easy bruising, swollen glands, others Endocrine: denies: excessive hunger, excessive sweating, excessive thirst, excessive urination, flushing, intolerance to cold, intolerance to heat, unexplained weight gain, unexplained weight loss, others Psychiatric: denies: anxiety, bipolar disorder, depression, hopeless, panic disorder, schizophrenia, sleepless, suicidal, others Physical Exam General Appearance: No Apparent Distress HEENT: Normal ENT Inspection, PERRL/EOMI, Pharynx Normal, TMs Normal Neck: Full Range of Motion, Non-Tender, Normal Respiratory: Lungs Clear, No Accessory Muscle Use, No Respiratory Distress, Normal Breath Sounds, Other (TTP TO LEFT MID POSTERIOR RIBCAGE AND LEFT LOWER RIBCAGE NOTED. NO SKIN CHANGES NOTED) Cardiovascular: No Murmur, No Gallop, Regular Rate/Rhythm Breast Exam: Deferred Gastrointestinal: NOT DONE Genitalia: Deferred Pelvic: Deferred Rectal: Deferred Extremities: Normal capillary refill, Normal range of motion Neurologic: Alert, No Motor Deficits, Normal Affect, Normal Mood, No Sensory Deficits Cerebellar Function: Normal Reflexes: Normal Skin: Dry, Normal Color, Warm Peripheral Pulses: 2+ Radial (R), 2+ Radial (L), 2+ Brachial (R), 2+ Brachial (L) Lymphatic: No Adenopathy Was a procedure done? Was a procedure done?: No Sedation Sedation?: No Differential Dx Differential Diagnosis: Pneumonia, Pulmonary Embolism, Respiratory Distress X-Ray, Labs, Meds, VS Vital Signs Date Time Temp Pulse Resp B/P (MAP) Pulse Ox O2 Delivery O2 Flow Rate FiO2 08/03/24 19:16 72 16 96/57 (70) 99 08/03/24 18:27 98.0 82 20 99/53 (68) 96 98.0 08/03/24 18:26 82 20 96 Room Air 08/03/24 17:48 20 96 Room Air* 0 21 08/03/24 17:48 98.0 82 20 99/53 (68) 96 Lab Test 08/03/24 18:48 Range/Units White Blood Count 5.9 4.4-10.8 10^3/uL Red Blood Count 4.70 4.5-5.90 10^6/uL Hemoglobin 14.7 13.5-17.5 g/dL Hematocrit 44.3 41.0-53.0 % Mean Corpuscular Volume 94.2 80.0-100.0 fL Mean Corpuscular Hemoglobin 31.3 28.0-32.0 pg Mean Corpuscular Hemoglobin Concent 33.3 32.0-36.0 g/dL Red Cell Distribution Width 16.0 H 11.8-14.3 % Platelet Count 250 140-450 10^3/uL Mean Platelet Volume 7.7 6.9-10.8 fL Neutrophils (%) (Auto) 49.7 37.0-80.0 % Lymphocytes (%) (Auto) 40.4 10.0-50.0 % Monocytes (%) (Auto) 8.0 0.0-12.0 % Eosinophils (%) (Auto) 1.4 0.0-7.0 % Basophils (%) (Auto) 0.5 0.0-2.0 % Neutrophils # (Auto) 3.0 1.6-8.6 10 ^3/uL Lymphocytes # (Auto) 2.4 0.4-5.4 10 ^3/uL Monocytes # (Auto) 0.5 0-1.3 10 ^3/uL Eosinophils # (Auto) 0.1 0-0.8 10 ^3/uL Basophils # (Auto) 0 0-0.2 10 ^3/uL Nucleated Red Blood Cells 0.3 % D-Dimer, Quantitative < 0.19 0.0-0.49 mg/L FEU Sodium Level 140 136-145 mmol/L Potassium Level 4.1 3.5-5.1 mmol/L Chloride Level 108 H 98-107 mmol/L Carbon Dioxide Level 25 20-31 mmol/L Anion Gap 7 5-15 Blood Urea Nitrogen 11 9-23 mg/dL Creatinine 0.78 0.700-1.30 mg/dL Glomerular Filtration Rate Calc 121 >90 mL/min BUN/Creatinine Ratio 14.1 10.0-20.0 Serum Glucose 130 H 74-106 mg/dL Calcium Level 9.8 8.7-10.4 mg/dL Total Bilirubin 0.2 0.2-1.0 mg/dL Aspartate Amino Transferase (AST) 12 L 13-40 U/L Alanine Aminotransferase (ALT) 18 7-40 U/L Alkaline Phosphatase 56 46-116 U/L Troponin I High Sensitivity < 3 L </=54 ng/L Total Protein 6.6 5.7-8.2 g/dL Albumin 4.4 3.2-4.8 g/dL PATIENT: MATTI BAY SQUIRESCCT: [id number]: [id number] : 1990 LOC: ER ROOM / BED: / AGE / SEX: 34 / M ADM STATUS: REG ER SERVICE 15 ORDERING PHYSICIAN: DANILO SMITH PROCEDURE(s): CXR2 - CHEST TWO VIEWS ROUTINE REASON: left rib pain ORDER NUMBER(s): [id number], ACCESSION NUMBER(s): [id number] XY CHEST TWO VIEWS ROUTINE CLINICAL HISTORY: left rib pain COMPARISON: None TECHNIQUE: Frontal and lateral view of the chest was obtained FINDINGS: Lungs are well expanded without infiltrates or effusions. Trachea is midline. Veronika is short mainstem bronchi are well aerated right pulmonary artery left pulmonary artery normal. The aorta is unremarkable. Heart size is normal there are no infiltrates or effusions retrocardiac spaces normal. Vertebral bodies are unremarkable. Pulmonary arteries are normal sagittal imaging. IMPRESSION: 1. Normal study ATED BY: EDMUND SALGADO MD DICTATED DATE/TIME: 08/03/241852 SIGNED BY: EDMUND SALGADO MD SIGNED DATE/TIME: 08/03/241852 CC: CBC REVIEWED WITHOUT ANY SIGNIFICANT ABNORMALITIES BMP REVIEWED WITHOUT ANY SIGNIFICANT ABNORMALITIES TROPONIN REVIEWED-NEGATIVE D-DIMER REVIEWED-NEGATIVE CHEST X-RAY REVIEWED NORCO 5/325 MG P.O. ORDERED ZOFRAN 4 MG P.O. ORDERED PATIENT HAD IMPROVEMENT IN SYMPTOMS, DENIED ANY CHEST PAIN/SHORTNESS OF BREATH AND IN NO DISTRESS PRIOR TO DISCHARGE ADVISED TO FOLLOW UP WITH PCP IN 1-2 DAYS PATIENT VERBALIZED UNDERSTANDING AND AGREEABLE WITH CURRENT PLAN OF CARE ADVISED TO RETURN TO ER IMMEDIATELY IF SYMPTOMS WORSEN Images Reviewed?: Images reviewed and evaluated by me Time of 1ST Reevaluation: 19:12 Reevaluation 1ST: N/A Patient Education/Counseling: Diagnosis, Treatment, Prognosis, Need For Follow Up Family Education/Counseling: Diagnosis, Treatment, Prognosis, Need For Follow Up Departure 1 Departure Time of Disposition: 19:52 Impression: Primary Impression: Sprain, ribs Qualified Codes: [id number] - Sprain of ribs, initial encounter Disposition: HOME / SELF CARE / HOMELESS Condition: Stable e-Prescriptions Acetaminophen W/ Codeine (Tylenol W/Cod #3) 1 Tab Tb 1 TAB PO Q6HPRN, #10 TAB 0 Refills Prov: DANILO SMITH 08/03/24 Discharged With: Relative (Mother) Critical Care Note Critical Care Time?: No Stability Stability form required: No Heart Score Heart Score: Heart Score Response (Comments) Value History N/A 0 EKG N/A 0 Age N/A 0 Risk Factors N/A 0 Troponin N/A 0 Total 0 DANILO SMITH Aug 03, 2024 19:18
[2024-08-03 19:25] LABS: Alanine Aminotransferase 18 U/L (7-40); Albumin 4.4 g/dL (3.2-4.8); Alkaline Phosphatase 56 U/L (46-116); Anion Gap 7 (5-15); BUN/Creatinine Ratio 14.1 (10.0-20.0); Blood Urea Nitrogen 11 mg/dL (9-23); Calcium 9.8 mg/dL (8.7-10.4); Carbon Dioxide 25 mmol/L (20-31); Potassium 4.1 mmol/L (3.5-5.1); Sodium 140 mmol/L (136-145); Total Protein 6.6 g/dL (5.7-8.2)
[2024-08-03 19:28] LABS: Aspartate Aminotransferase 12 U/L (13-40); Bilirubin, Total 0.2 mg/dL (0.2-1.0); Chloride 108 mmol/L (98-107); Glucose 130 mg/dL (74-106)
[2024-08-03] MEDS ORDERED: ACE3T PO (19:56)
[2024-08-03] MEDS: HYDROcodone-ACET 5/325MG TAB PO ONE (20:43)
[2024-08-03] MEDS: ONDANSETRON ODT 4 MG TAB PO ONE (20:44)
== END 2024-08-03 20:51 | disposition home or self-care (01) ==
LOC: ER 17:22
DX: S23.41XA Sprain of ribs, initial encounter (principal); F17.210 Nicotine dependence, cigarettes, uncomplicated; Z87.442 Personal history of urinary calculi; Z98.890 Other specified postprocedural states; Z86.718 Personal history of other venous thrombosis and embolism; X58.XXXA Exposure to other specified factors, initial encounter; Y93.89 Activity, other specified; Y92.89 Other specified places as the place of occurrence of the external cause; Y99.8 Other external cause status
CPT/HCPCS: 36415; 71046; 80053; 84484; 85025; 85379; 99284; Q0162